=== PATIENT | female | born 1965 | race Hispanic/Latino ===

== ENCOUNTER 2017-08-09 02:06 | Inpatient (IN) | payer MEDICARE ==
[2017-08-09 02:20] VITALS: O2SAT 100
--- NOTE | 2017-08-09 02:21 | ED PDOC ---
Psych Transfer Clearance - Clearance Statement Clearance Statement: Reviewed vital signs, lab results and transfer papers. Patient clinically stable for psychiatric admission.
--- NOTE | 2017-08-09 03:16 | PCM.BM ---
<Marily Nance - Last Filed: 08/09/17 03:14> Treatment Plan Problems - Problems identified on initial assessmt Hopelessness/Helplessness Date Initiated: 08/09/17 Time Initiated: 03:15 Assessment reference: NA Status: Active Medication nonadherence Date Initiated: 08/09/17 Time Initiated: 03:16 Assessment reference: NA Status: Active Treatment assets and liabiliti Patient Assests: educated, negotiates basic needs - Milieu Protocol Maintain good personal hygiene: daily Encourage regular showers, daily Remind patient to perform daily oral care, every shift Assist patient to perform ADL's Maintain personal safety: every shift Educate patient to report safety concerns to staff, every shift Monitor environment for contraband/sharps Medication safety: Monitor for expected outcome, potential side effects: every shift, Assess barriers to learning: every shift, Assess readiness for medication education: every shift <Rosalia Sierra - Last Filed: 08/09/17 16:18> Treatment assets and liabiliti Patient Assests: educated, self-reliant, ADL independent, physically healthy, negotiates basic needs, good past tx response Patient Liabilities: other (patient currently uncooperative and guarded when providing collateral) Family Contact Family involvement: Patient does not wish Family/SO involvement Family contact: Patient declines to allow family contact at present - Goals for Treatment Patient goals for treatment: Patient guarded and mostly uncooperative through- out assessment. Patient AOX3 with constricted affected and fair eye contacted. Patient presents as bizarre and paranoid. Patient presents with loosened associations and is tangential in conversation, requiring significant refocusing and redirection. Patient easily irritable and declined to answer several questions, repeating This system is broken. Our universe is broken. The bottom is falling out. Insight poor. Coping skills/Judgment grossly impaired. Patient currently denies SI/HI and is able to contract for safety on 3NP. Patient is demanding to leave and is currently awaiting screening for involuntary treatment. Patient withdrawn on 3NP. Patient to be encouraged to attend 3-6 groups/weekly to develop appropriate coping skills, improve insight and promote organization in thoughts, reality testing, socialization and safety. Discharge/Continuing Care - Education Needs Education Needs: Patient Medication, Patient Diagnosis/Disease Process, Patient Coping Skills, Patient Community resources, Patient Aftercare Safety Plan - Discharge Discharge Criteria: Tolerates medication w/o severe side effects, Free of Suicidal thoughts, Free of paranoid thoughts, Ability to care for self, Reduction of target symptoms Discharge to:: Home, With Family <Juaquin Manrique - Last Filed: 08/10/17 13:03>
[2017-08-09] MEDS ORDERED: Magnesium Hydroxide Susp 30 ml UD PO PRN (04:14)
[2017-08-09] MEDS ORDERED: DiphenhydrAMINE 50 mg/ml Inj IM PRN (04:14)
[2017-08-09] MEDS ORDERED: Alum-Mag Hydrox-Simethicone Susp (30 mL) PO PRN (04:14)
[2017-08-09 07:12] LABS: T4 9.25 ug/dl (5.5-11.0)
[2017-08-09 07:25] LABS: THYROID STIMULATING HORMONE 2.76 mIU/ML (0.46-4.68)
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
--- NOTE | 2017-08-09 14:50 | CP.PCM.CON ---
History of Present Illness - History of Present Illness History of Present Illness: 51 yo female with history of Bipolar DO admitted to psyche unit because of paranoia and suicidal ideation. She claimed she has been dizzy the past few days. Also complained of excessive vaginal discharge and itchiness. Review of Systems - Review of Systems All systems: reviewed and no additional remarkable complaints except (aside from those mentioned above, 12 point system review were negative by me) Past Patient History - Tetanus Immunizations Tetanus Immunization: Unknown - Past Medical History & Family History Past Medical History?: No Past Family History: Reviewed and not pertinent - Past Social History Smoking Status: Light Smoker < 10 Cigarettes Daily Alcohol: None Drugs: Denies Home Situation {Lives}: Alone - CARDIAC Hx Cardiac Disorders: No Hx Hypertension: No - PULMONARY Hx Tuberculosis: No - NEUROLOGICAL HX Cerebrovascular Accident: No Hx Seizures: No - HEMATOLOGICAL/ONCOLOGICAL Hx Cancer: No Hx Human Immunodeficiency Virus (HIV): No - MUSCULOSKELETAL/RHEUMATOLOGICAL Hx Arthritis: Yes - GENITOURINARY/GYNECOLOGICAL Hx Sexually Transmitted Disorders: No - PSYCHIATRIC Hx Bipolar Disorder: Yes Hx Substance Use: No - SURGICAL HISTORY Hx Surgeries: No - ANESTHESIA Hx Anesthesia: No Meds Allergies/Adverse Reactions: Allergies Allergy/AdvReac Type Severity Reaction Status Date / Time milk Allergy Mild upset Verified 08/09/17 02:29 stomach wheat Allergy Mild upset Verified 08/09/17 02:28 stomach - Medications Medications: Current Medications Acetaminophen (Tylenol 325mg Tab) 650 mg PO Q4 PRN PRN Reason: Pain, moderate (4-7) Al Hydrox/Mg Hydrox/Simethicone (Maalox Plus 30 Ml) 30 ml PO Q4 PRN PRN Reason: Dyspepsia Diphenhydramine HCl (Benadryl) 50 mg IM Q6 PRN PRN Reason: Extrapyramidal S/S Unable PO Diphenhydramine HCl (Benadryl) 50 mg PO HS PRN PRN Reason: Sleep Haloperidol (Haldol) 5 mg PO Q4 PRN PRN Reason: Agitation Haloperidol Lactate (Haldol) 5 mg IM Q4 PRN PRN Reason: Agitation, Unable to Take PO Lorazepam (Ativan) 2 mg IM Q4 PRN PRN Reason: Anxiety/Agitation,Unable PO Lorazepam (Ativan) 2 mg PO Q4 PRN PRN Reason: Anxiety/Agitation Magnesium Hydroxide (Milk Of Magnesia) 30 ml PO HS PRN PRN Reason: Constipation Physical Exam - Constitutional Appears: No Acute Distress - Head Exam Head Exam: ATRAUMATIC - Eye Exam Eye Exam: absent: Scleral icterus - ENT Exam ENT Exam: Mucous Membranes Moist - Neck Exam Neck exam: Negative for: Meningismus - Respiratory Exam Respiratory Exam: absent: Rhonchi, Wheezes, Respiratory Distress - Cardiovascular Exam Cardiovascular Exam: REGULAR RHYTHM, +S1, +S2 - GI/Abdominal Exam GI & Abdominal Exam: Soft. absent: Tenderness - Rectal Exam Rectal Exam: Deferred - Extremities Exam Extremities exam: Negative for: pedal edema - Back Exam Back exam: NORMAL INSPECTION - Neurological Exam Neurological exam: Alert, Oriented x3 - Psychiatric Exam Psychiatric exam: Normal Affect - Skin Skin Exam: Dry, Intact Results - Vital Signs Recent Vital Signs: Last Vital Signs Temp 97.2 F L 08/09/17 09:00 Pulse 69 08/09/17 09:00 Resp 18 08/09/17 09:00 BP 127/73 08/09/17 09:00 Pulse Ox 100 08/09/17 02:18 - Labs Labs: Laboratory Results - last 24 hr 08/09/17 06:10 Triglycerides 89 Cholesterol 170 LDL Cholesterol Direct 112 HDL Cholesterol 32 Thyroxine (T4) 9.25 TSH 3rd Generation 2.76 Assessment & Plan (1) Suicidal ideation Status: Acute Comment: psyche is managing (2) Vaginal discharge Status: Acute Comment: refer to [facility] for evaluation and management
--- NOTE | 2017-08-10 11:38 | PCM.PYCHPN ---
Psychiatric Progress Note - Psychiatric Progress Note Patient seen today, length of contact: in treatment team Patient Chief Complaint: why haven't i gotten a pap smear yet Problems Identified/Issues Discussed: pt c/o a vaginal discharge- "there is pus running down my leg." she also states "they only did an elementary endocrine exam in the ER, i need a more advanced exam. she was refusing chest xray and is giving water instead of urine when a urine sample requested. pt remains bizarre, paranoid and irritable. she is having difficulty processing the information regarding her [place] [facility] [place] 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 Medical Problems: c/o vaginal discharge Medication Change: No (refusing medications) Medical Record Reviewed: Yes Mental Status Examination - Cognitive Function Orientation: Person, Place, Situation, Time Memory: Intact Attention: WNL Concentration: Poor Association: Loose Fund of Knowledge: WNL Decription of patient's judgement and insights: poor i/j - Mood Mood: Anxious, Other (angry) - Affect Affect: Constricted - Speech Speech: Loud - Formal Thought Process Formal Thought Process: Delusions, Paranoia, Loosening of associations, Perservation Psychotic Thoughts and Behaviors: grossly disorganized thoughts/behavior - Suicidal Ideation Suicidal Ideation: No Plan: is denying currently - Homicidal Ideation Homicidal Ideation: No Goal/Treatment Plan - Goal/Treatment Plan Need for Continued Stay: Remain at risks for inpatient hospitalization, Discharge may exacerbated symptoms Progress Toward Problem(s) and Goals/Treatment Plan: psychotic disorder- likely schizophrenia vs schizoaffective disorder pt screened and [place] [facility] [place] in charge consult has been ordered by dr. bond pt is refusing meds/chest xray Estimated Date of D/C: 08/16/17
[2017-08-10 18:47] VITALS: RESP 18
--- NOTE | 2017-08-11 10:41 | PCM.PYCHPN ---
Psychiatric Progress Note - Psychiatric Progress Note Patient seen today, length of contact: pt seen and evaluated Patient Chief Complaint: pt remains internally precoccupied with bizarre somatosensory symptoms delusional innature as she is not in any medical distress.pt denies any psych illn ess and continues to stay in unit for psychiatric treatment and has been screened and waiting for bed availability at [facility] DSM 5 Symptoms Update: unspecified psychosis. Medication Change: No (refusing medications) Medical Record Reviewed: Yes Mental Status Examination - Cognitive Function Orientation: Person, Place, Situation, Time Memory: Intact Attention: WNL Concentration: Poor Association: Loose Fund of Knowledge: WNL - Mood Mood: Anxious, Other (angry) - Affect Affect: Constricted - Speech Speech: Loud - Formal Thought Process Formal Thought Process: Delusions, Paranoia, Loosening of associations, Perservation - Suicidal Ideation Suicidal Ideation: No - Homicidal Ideation Homicidal Ideation: No Goal/Treatment Plan - Goal/Treatment Plan Need for Continued Stay: Remain at risks for inpatient hospitalization, Discharge may exacerbated symptoms Progress Toward Problem(s) and Goals/Treatment Plan: will continue to monitor pt and transfer pt to [facility] when accepted Estimated Date of D/C: 08/16/17
--- NOTE | 2017-08-11 13:58 | CP.PCM.CON ---
<Anton Ramirez - Last Filed: 08/11/17 13:59> Past Patient History - Tetanus Immunizations Tetanus Immunization: Unknown - Past Medical History & Family History Past Medical History?: No Past Family History: Reviewed and not pertinent - Past Social History Smoking Status: Light Smoker < 10 Cigarettes Daily Alcohol: None Drugs: Denies Home Situation {Lives}: Alone - CARDIAC Hx Cardiac Disorders: No Hx Hypertension: No - PULMONARY Hx Tuberculosis: No - NEUROLOGICAL HX Cerebrovascular Accident: No Hx Seizures: No - HEMATOLOGICAL/ONCOLOGICAL Hx Cancer: No Hx Human Immunodeficiency Virus (HIV): No - MUSCULOSKELETAL/RHEUMATOLOGICAL Hx Arthritis: Yes - GENITOURINARY/GYNECOLOGICAL Hx Sexually Transmitted Disorders: No - PSYCHIATRIC Hx Bipolar Disorder: Yes Hx Substance Use: No - SURGICAL HISTORY Hx Surgeries: No - ANESTHESIA Hx Anesthesia: No Meds Allergies/Adverse Reactions: Allergies Allergy/AdvReac Type Severity Reaction Status Date / Time milk Allergy Mild upset Verified 08/09/17 02:29 stomach wheat Allergy Mild upset Verified 08/09/17 02:28 stomach - Medications Medications: Current Medications Acetaminophen (Tylenol 325mg Tab) 650 mg PO Q4 PRN PRN Reason: Pain, moderate (4-7) Al Hydrox/Mg Hydrox/Simethicone (Maalox Plus 30 Ml) 30 ml PO Q4 PRN PRN Reason: Dyspepsia Diphenhydramine HCl (Benadryl) 50 mg IM Q6 PRN PRN Reason: Extrapyramidal S/S Unable PO Last Admin: 08/10/17 03:11 Dose: 50 mg Diphenhydramine HCl (Benadryl) 50 mg PO HS PRN PRN Reason: Sleep Haloperidol (Haldol) 5 mg PO Q4 PRN PRN Reason: Agitation Haloperidol Lactate (Haldol) 5 mg IM Q4 PRN PRN Reason: Agitation, Unable to Take PO Last Admin: 08/10/17 03:12 Dose: 5 mg Lorazepam (Ativan) 2 mg IM Q4 PRN PRN Reason: Anxiety/Agitation,Unable PO Last Admin: 08/10/17 03:11 Dose: 2 mg Lorazepam (Ativan) 2 mg PO Q4 PRN PRN Reason: Anxiety/Agitation Magnesium Hydroxide (Milk Of Magnesia) 30 ml PO HS PRN PRN Reason: Constipation Results - Vital Signs Recent Vital Signs: Last Vital Signs Temp 97.1 F L 08/10/17 17:00 Pulse 82 08/10/17 17:00 Resp 18 08/10/17 17:00 BP 93/68 L 08/10/17 17:00 Pulse Ox 100 08/09/17 02:18 Assessment & Plan - Assessment and Plan (Free Text) Assessment: Haylie Blacnas is a 51 yo F who self admitted to the psychiatric unit with displays of somatosensory symptoms with delusions. We were asked to consult due to pt sharing symptoms of a "yeast infection" pain in her vagina, puritis and thick yellow/green discharge; We arrived and were able to meet with the patient in the common living room. When asked about her symptoms, she asked a vaginal swab. Due to lack of a proper physical exam table with necessary exam equipment, we share that we are unable to fully examine the patient. She responded with "Speaking with you is a waste of my time" She has been accepted to [facility] for inpatient care where she will be able to be examined properly and treated if appropriate. EMILE PGY1 with Dr. Bullock. <Ellen Bullock S - Last Filed: 08/11/17 16:20> History of Present Illness - History of Present Illness History of Present Illness: Pt seen by me with Dr. Ramirez. Agree with above note. Meds - Medications Medications: Current Medications Acetaminophen (Tylenol 325mg Tab) 650 mg PO Q4 PRN PRN Reason: Pain, moderate (4-7) Al Hydrox/Mg Hydrox/Simethicone (Maalox Plus 30 Ml) 30 ml PO Q4 PRN PRN Reason: Dyspepsia Diphenhydramine HCl (Benadryl) 50 mg IM Q6 PRN PRN Reason: Extrapyramidal S/S Unable PO Last Admin: 08/10/17 03:11 Dose: 50 mg Diphenhydramine HCl (Benadryl) 50 mg PO HS PRN PRN Reason: Sleep Haloperidol (Haldol) 5 mg PO Q4 PRN PRN Reason: Agitation Haloperidol Lactate (Haldol) 5 mg IM Q4 PRN PRN Reason: Agitation, Unable to Take PO Last Admin: 08/10/17 03:12 Dose: 5 mg Lorazepam (Ativan) 2 mg IM Q4 PRN PRN Reason: Anxiety/Agitation,Unable PO Last Admin: 08/10/17 03:11 Dose: 2 mg Lorazepam (Ativan) 2 mg PO Q4 PRN PRN Reason: Anxiety/Agitation Magnesium Hydroxide (Milk Of Magnesia) 30 ml PO HS PRN PRN Reason: Constipation Results - Vital Signs Recent Vital Signs: Last Vital Signs Temp 97.1 F L 08/10/17 17:00 Pulse 82 08/10/17 17:00 Resp 18 08/10/17 17:00 BP 93/68 L 08/10/17 17:00 Pulse Ox 100 08/09/17 02:18
[2017-08-11 16:39] VITALS: BP 110/68; PULSE 69; TEMP 97.5
--- NOTE | 2017-08-11 21:30 | CP.PCM.PN ---
Subjective - Date & Time of Evaluation Date of Evaluation: 08/11/17 Time of Evaluation: 21:24 - Subjective Subjective: Called to evaluate this patient as to clearance for transfer to [facility] Psychiatric unit. The patient refused to have Chest X Ray done because as she stated, she does not want any exposure to radiation. She has no hx of TB nor known exposure to TB, No Asthma, Pneumonia nor any known pulmonary pathology No fever, SOB, Cough and no need for Therapeutic Oxygen. Oxygen Saturation is 100% on room air Examination of the lungs. Good Air entry bilateral, No rales, wheezes nor rhonchi on Auscultation. CVS: S1 S2 regular and rhythmic, no murmurs nor Gallops Abdomen: Soft nontender, +ve bowel sounds. Extremities: No edema, non-tender I have spoken and examined this patient and reviewed her medical records, and I conclude that she does not have any active Pulmonary Pathology at this time. In terms of Pulmonary, cardiac and general medicine, I am clearing her for transfer to [facility] psychiatry Unit. Bowen Nguyen MD Objective - Vital Signs/Intake and Output Vital Signs (last 24 hours): Temp Pulse Resp BP Pulse Ox 97.5 F L 69 18 110/68 100 08/11/17 16:38 08/11/17 16:38 08/11/17 16:38 08/11/17 16:38 08/09/17 02:18 - Medications Medications: Current Medications Acetaminophen (Tylenol 325mg Tab) 650 mg PO Q4 PRN PRN Reason: Pain, moderate (4-7) Al Hydrox/Mg Hydrox/Simethicone (Maalox Plus 30 Ml) 30 ml PO Q4 PRN PRN Reason: Dyspepsia Diphenhydramine HCl (Benadryl) 50 mg IM Q6 PRN PRN Reason: Extrapyramidal S/S Unable PO Last Admin: 08/10/17 03:11 Dose: 50 mg Diphenhydramine HCl (Benadryl) 50 mg PO HS PRN PRN Reason: Sleep Haloperidol (Haldol) 5 mg PO Q4 PRN PRN Reason: Agitation Haloperidol Lactate (Haldol) 5 mg IM Q4 PRN PRN Reason: Agitation, Unable to Take PO Last Admin: 08/10/17 03:12 Dose: 5 mg Lorazepam (Ativan) 2 mg IM Q4 PRN PRN Reason: Anxiety/Agitation,Unable PO Last Admin: 08/10/17 03:11 Dose: 2 mg Lorazepam (Ativan) 2 mg PO Q4 PRN PRN Reason: Anxiety/Agitation Magnesium Hydroxide (Milk Of Magnesia) 30 ml PO HS PRN PRN Reason: Constipation
--- NOTE | 2017-08-13 08:12 | PCM.PYCHDC ---
Mental Status Examination - Mental Status Examination Orientation: Person, Place, Situation, Time (see my progress note from 08/10/17 for details) Description of patient's judgement and insight: poor i/j Psychotic Thoughts and Behaviors: grossly disorganized thoughts/behavior Discharge Summary - Discharge Note Reason for Hospitalization: bizarre behaviors, suicidal threats Psychiatric History (includes Medical, Family, Personal Hx): states she was misdiagnosed as bipolar disorder 24 years ago Consultations:: List each consultation separately and include: 1. Reason for request. 2. Findings. 3. Follow-up Consultations: seen by hospitalist and inside sales professional medically cleared for transfer Summary of Hospital Course include:: 1. Description of specific treatment plan utilized for patients during their course of treatmen. 2. Summarize the time- course for resolution of acute symptoms and/or regressed behaviors. 3. Describe issues identified and worked on during hospitalization. 4. Describe medication utilized. 5. Describe medical problems identified and treated. 6. Reassessment of suicide risk Summary of Hospital Course: 51 yo female who states she was misdiagnosed as bipolar at age 23. she states she doesn't take medications or see a psychiatrist and states she wasn't hospitalized for "over a decade" she states she went to her auditing coder office and was not feeling well physically and they sent her to the ER. pt states she is seeing the records associate regarding her apartment building as they are trying to "turn it into condos" the patient states that for the 6 days prior to her going to her auditing coder office she was unable to "get off the floor of my apartment" she described having periods when she stood up and felt the floor moving, felt sweaty and hot, felt cramps in her lower legs and states she could only eat crackers. she is denying that she is having panic attacks and gets very defensive and irritated when asked more. she states she sees a benefits director and she drinks teas that he prescribes. she states she doesn't see a medical doctor because of "the copay" she states "i wish i would have spent the $65 dollars on a cab to my benefits director instead of going to [facility]." per the report at [facility], the pt made some threats to kill herself, possibly jumping out a 6 floor window." pt however now is stating that she was forced to sign into here "under duress" she states she was told "if i don't sign in, i will go to [facility] as an involuntary patient and that would be more complicated" the patient appears to be paranoid. she is stating "this is the new [place] gestapo." she is demanding to see an fourdrinier operator. she does not appear to have any weakness or dizziness now. she continues to make demands to leave and is evasive regarding her symptoms, past history. she is demanding to call her records associate. hospital course admitted to [facility] and oriented to the unit. placed on routine safety protocols. seen by medical specialists. signed a 48 hour notice to leave hospital, refused to take any psychiatric medications. she remained angry, loud, intrusive, paranoid and with delusional thoughts. she was screened by [facility] and found to meet criteria to be transfered to [facility] for further assessment for involuntary hospitalization. - Final Diagnosis (DSM 5) Condition upon Discharge: FAIR DSM 5: psychotic disorder r/o schizophrenia vs. schizoaffective disorder Disposition: Trans to Other Acute Care Hosp Follow-up Treatment Plan: will be under the care of the treatment team at [facility] - Smoking Cessation Smoking Cessation Medication prescribed: No - Antipsychotic Medications Pt discharged on 2 or more routine antipsychotic medications: No
== END 2017-08-11 23:15 | DRG 885 ==
LOC: H.ER 02:06 → H.PSYCH 02:20
PROVIDERS: ADMIT Psychiatry & Neurology Psychiatry; ATTEND Psychiatry & Neurology Psychiatry
PROC: GZHZZZZ Group Psychotherapy (ICD-10-PCS; principal; 2017-08-09)
PROC: GZ51ZZZ Individual Psychotherapy, Behavioral (ICD-10-PCS; 2017-08-09)
DX: F29 Unspecified psychosis not due to a substance or known physiological condition (principal); F22 Delusional disorders; R45.851 Suicidal ideations; F31.9 Bipolar disorder, unspecified; N89.8 Other specified noninflammatory disorders of vagina; Z75.1 Person awaiting admission to adequate facility elsewhere; F17.210 Nicotine dependence, cigarettes, uncomplicated; M19.90 Unspecified osteoarthritis, unspecified site; R42 Dizziness and giddiness

== ENCOUNTER 2017-10-03 00:01 | Emergency (ER) | payer MEDICARE ==
[2017-10-03 01:45] VITALS: BP 124/72; PULSE 73; RESP 16; TEMP 98.4; O2SAT 98
--- NOTE | 2017-10-03 02:03 | ED PDOC ---
HPI: Psych/Substance Abuse Time Seen by Provider: 10/03/17 00:20 Chief Complaint (Nursing): Psychiatric Evaluation Chief Complaint (Provider): Crisis Evaluation History Per: Patient History/Exam Limitations: no limitations Suicide/Self Injury Attempted (Context): None Additional Complaint(s): Patient is a 51 y/o female with a past medical history of bipolar disorder and arthritis, who self presents to the ED for crisis evaluation. Patient reports she was referred by her managing attorney. Denies any homicidal/suicidal ideation, as well as auditory/visual hallucinations. PCP: NO FAMILY PROVIDER Past Medical History Reviewed: Historical Data, Nursing Documentation, Vital Signs Vital Signs: Last Vital Signs Temp 98.4 F 10/03/17 01:44 Pulse 73 10/03/17 01:44 Resp 16 10/03/17 01:44 BP 124/72 10/03/17 01:44 Pulse Ox 98 10/03/17 01:44 - Medical History PMH: Arthritis, Bipolar Disorder Denies: Diabetes, Hepatitis, HIV, HTN, Chronic Kidney Disease, Seizures, Sexually Transmitted Disease - Surgical History Surgical History: No Surg Hx - Family History Family History: States: No Known Family Hx, Unknown Family Hx - Social History Current smoker - smoking cessation education provided: Yes (light smoker < 10 cigarettes daily) Alcohol: Social Drugs: Denies - Immunization History Hx Tetanus Toxoid Vaccination: No Hx Influenza Vaccination: No Hx Pneumococcal Vaccination: No - Home Medications Home Medications: Ambulatory Orders Medication Instructions Recorded No Known Home Med 08/08/17 - Allergies Allergies/Adverse Reactions: Allergies Allergy/AdvReac Type Severity Reaction Status Date / Time milk Allergy Mild upset Verified 10/03/17 00:09 stomach wheat Allergy Mild upset Verified 10/03/17 00:09 stomach antihistamines Allergy RASH Uncoded 10/03/17 00:09 Review of Systems ROS Statement: Except As Marked, All Systems Reviewed And Found Negative Physical Exam - Reviewed Nursing Documentation Reviewed: Yes Vital Signs Reviewed: Yes - Physical Exam Appears: Positive for: No Acute Distress Head Exam: Positive for: ATRAUMATIC, NORMOCEPHALIC Skin: Positive for: Normal Color, Warm, Dry Eye Exam: Positive for: Normal appearance, EOMI, PERRL Neck: Positive for: Normal, Painless ROM, Supple Cardiovascular/Chest: Positive for: Regular Rate, Rhythm. Negative for: Murmur Respiratory: Positive for: Normal Breath Sounds. Negative for: Respiratory Distress Gastrointestinal/Abdominal: Positive for: Normal Exam, Soft. Negative for: Tenderness Back: Positive for: Normal Inspection. Negative for: L CVA Tenderness, R CVA Tenderness, Vertebral Tenderness Extremity: Positive for: Normal ROM. Negative for: Pedal Edema, Deformity Neurologic/Psych: Positive for: Alert, Oriented (x3). Negative for: Motor/ Sensory Deficits - ECG O2 Sat by Pulse Oximetry: 98 (RA) Pulse Ox Interpretation: Normal Medical Decision Making Medical Decision Makin:46 Initial Impression: 51 y/o female self-presenting for crisis evaluation in setting of bipolar disorder Initial Plan: --Crisis evaluation 01:50 -Patient evaluated by crisis and stable for discharge Clinical Impression: Bipolar disorder Scribe Attestation: Documented by Leia Stein, acting as a scribe for Nenita Larkin MD Provider Scribe Attestation: All medical record entries made by the Scribe were at my direction and personally dictated by me. I have reviewed the chart and agree that the record accurately reflects my personal performance of the history, physical exam, medical decision making, and the department course for this patient. I have also personally directed, reviewed, and agree with the discharge instructions and disposition. Disposition - Clinical Impression Clinical Impression: Bipolar disorder - Patient ED Disposition Is Patient to be Admitted: No - Disposition Disposition: Routine/Home Disposition Time: 01:50 Condition: STABLE Instructions: Bipolar Disorder (ED) Forms: [employer] (Faroese)
== END 2017-10-03 02:03 | disposition home or self-care (01) ==
LOC: H.ER 00:01
DX: F31.9 Bipolar disorder, unspecified (principal); M19.90 Unspecified osteoarthritis, unspecified site